=== PATIENT | female | born 1950 | race Caucasian/White ===

== ENCOUNTER 2016-06-27 13:52 | Inpatient (IN) | payer BC, OTHER ==
[~2016-06-27] VITALS: Ht 160 cm; Wt 68.6 kg
[~2016-06-27 13:52] MED LIST: BENICAR PO; BIOT1TAB2 PO; DICY10CA55 PO; FISHOIL PO; GLUC500C4 PO; MAGNESIUM PO; MEDR2.5T PO; MULT-190 PO; MULTTAB58 PO; PRM/625 PO; VALA500T60 PO; [UNRECOGNIZED DRUG - CODE] PO; [UNRECOGNIZED DRUG - MIXTURE] PO
[2016-06-27] MEDS ORDERED: LABETALOL HCL IV 5 MG/ML 20ML IV STA ×2 (14:12→16:52)
[2016-06-27] MEDS ORDERED: SODIUM CHLORIDE 0.9% 1000ML 1,000 ML IV SCH ×2 (14:12→18:30)
[2016-06-27] MEDS ORDERED: OLME1TAB21 PO (14:20)
[2016-06-27] MEDS ORDERED: OMEG10002 PO (14:21)
--- NOTE | 2016-06-27 14:30 | DIAGNOSTIC IMAGING REPORT ---
CT HEAD WITHOUT CONTRAST (CT) CLINICAL HISTORY: Stroke LOSS OF MEMORY, CONFUSION. COMPARISON STUDY: No previous studies for comparison. TECHNIQUE: Axial CT of the brain is performed from the vertex to the skull base. IV contrast was not administered for this examination. CT DOSE: 537.48 mGy.cm FINDINGS: No intra or extra-axial mass lesions are visualized. There is no CT evidence of acute cortical infarction. There is no evidence of midline shift. There is no acute hemorrhage. No calvarial fractures are visualized. There are minimal white matter hypodensities likely on a small vessel basis. There is no evidence of pathologic ventricular dilatation. There is mucosal thickening/fluid within the right maxillary sinus. IMPRESSION: No acute intracranial findings Electronically signed by: Héctor Hayden M.D. 06/27/2016 2:29 PM Dictated Date/Time: 06/27/2016 2:27 PM
[2016-06-27 14:34] LABS: BASO % 0.7 %; BASO ABS # 0.04 K/uL (0-0.2); COMPLETE YES; EOS % 3.4 %; HEMATOCRIT 40.3 % (37-47); IG% 0.7 %; LYMPH % 20.8 %; LYMPH ABS # 1.15 K/uL (1.2-3.4); MEAN CELL VOLUME 90.4 fL (80-100); MEAN CORPUSCULAR HEMOGLOBIN 32.5 pg (25-34); MEAN PLATELET VOLUME 9.2 fL (7.4-10.4); NEUT % 67.4 %; PLATELET COUNT 253 K/uL (130-400); RED BLOOD COUNT 4.46 M/uL (4.2-5.4); WHITE BLOOD COUNT 5.54 K/uL (4.8-10.8)
[2016-06-27 14:55] LABS: BLOOD UREA NITROGEN 14 mg/dl (7-18); BUN/CREATININE RATIO 14.6 (10-20); CALCIUM 10.2 mg/dl (8.5-10.1); CARBON DIOXIDE 22 mmol/L (21-32); CHLORIDE 93 mmol/L (98-107); CREATININE 0.97 mg/dl (0.60-1.20); GLUCOSE 104 mg/dl (70-99); POTASSIUM 3.6 mmol/L (3.5-5.1); SODIUM 129 mmol/L (136-145)
[2016-06-27 14:58] LABS: ISTAT CREATININE 0.8 mg/dl (0.6-1.3); ISTAT IONIZED CALCIUM 1.09 mmol/l (1.12-1.32)
[2016-06-27 15:00] LABS: CKMB/CK RATIO 1.8 (0-3.0)
[2016-06-27 15:17] LABS: BENZODIAZEPINE, URINE NEG (NEG); COCAINE,URINE NEG (NEG); PHENCYCLIDINE, URINE NEG (NEG)
[2016-06-27 15:21] LABS: THYROID STIMULATING HORMONE 2.76 uIu/ml (0.300-4.500)
[2016-06-27] MEDS ORDERED: BNC/20125 PO (15:39)
--- NOTE | 2016-06-27 15:41 | DIAGNOSTIC IMAGING REPORT ---
CHEST ONE VIEW PORTABLE CLINICAL HISTORY: Stroke COMPARISON STUDY: 07/02/2012 FINDINGS: The cardiac and mediastinal contours are normal. There is no evidence of focal pulmonary consolidation. There is no evidence of failure. No pleural effusions are visualized.[ IMPRESSION: No active disease in the chest. Electronically signed by: Héctor Hayden M.D. 06/27/2016 3:40 PM Dictated Date/Time: 06/27/2016 3:39 PM
[2016-06-27 15:57] LABS: URINE APPEARANCE CLOUDY (CLEAR); URINE BILIRUBIN NEG (NEG); URINE COLOR YELLOW; URINE EPITHELIAL CELL AUTO >30 /lpf (0-5); URINE NITRITE NEG (NEG); URINE SPECIFIC GRAVITY 1.018 (1.000-1.030); UROBILINOGEN NEG (NEG)
[2016-06-27 15:59] LABS: MANUAL MICROSCOPIC REQUIRED? NO; REVIEW REQ? NO
[2016-06-27] MEDS ORDERED: ACETAMINOPHEN 325 MG TAB PO STA (16:07)
--- NOTE | 2016-06-27 16:31 | EMERGENCY ROOM VISIT NOTE ---
History Report prepared by Giancarlo: Tracee Steward Under the Supervision of: Dr. James Martinez M.D. First contact with patient: 14:02 Chief Complaint: STROKE SYMPTOMS Stated Complaint: CONFUSION, LOSS OF MEMORY History of Present Illness The patient is a 65 year old female who presents to the Emergency Room with complaints of possible stroke symptoms. She is accompanied by her . The patient's reports they wore making hoagies at [employer] this morning. On the way home, they drove separately and her stopped at his mother-in- laws to help shovel snow. When he got home, the patient was "standing there in a daze". He reports she had no recollection of making hoagies or what she did this morning. The last time her saw her well was around 1130 this morning when she left [employer]. The patient does not remember anything about this morning, stating she does not recall driving herself home. Her thinks she may have shoveled their porch and sidewalk, as both were cleared when he arrived home, but he is not completely sure. He denies seeing any signs of trauma in their home, like she had fallen. The patient denies any vision changes , headache, chest pain, shortness of breath, or numbness or weakness on one side of her body. She denies any changes in speech or difficulty finding words and states she feels well here in the ED except for her memory. Her notes she has a history of hypertension, for which she takes daily medication, and uses hormone replacement. She has no history of diabetes or anticoagulant use. Source of History: patient, spouse/significant other () History Limited By: other (confusion) Onset: 11:30 AM last known well Position: other (global ) Quality: other (Memory loss) Timing: other (persistent) Associated Symptoms: No SOB, No chest pain, No headache, No numbness ( numbness on one side of body), No weakness (weakness on one side of body) Review of Systems See HPI for pertinent positives & negatives. A total of 10 systems reviewed and were otherwise negative. Past Medical & Surgical Medical Problems: (1) Hypertension Social History Smoking Status: Never Smoker Smokeless Tobacco Use: No Alcohol Use: occasionally Drug Use: none Marital Status: Housing Status: lives with family Occupation Status: retired Current/Historical Medications Scheduled Biotin (Biotin), 1 TABLET PO DAILY Estrogens, Conjugated (Premarin), 0.625 MG PO QM-F Gelatin (Bulk) (Gelatin), 650 MG PO DAILY Glucosamine Sulfate (Glucosamine), 2,000 MG PO DAILY Multiple Vitamin (Multivitamin), 1 TAB PO DAILY Ocuvite Preservision (Ocuvite Preservision), 1 TAB PO DAILY Olmesartan/Hctz (Benicar Hct 20/12.5), 1 TAB PO DAILY Prentiss-3 Fatty Acids (Fish Oil), 1,000 MG PO BID Allergies Coded Allergies: Sulfa Drugs (Verified Allergy, Mild, ICTH,SWELLING, 10/28/14) Physical Exam Vital Signs Date Time Temp Pulse Resp B/P Pulse Ox O2 Delivery O2 Flow Rate FiO2 06/27/16 16:13 76 16 166/104 100 Room Air 06/27/16 15:50 79 18 155/92 100 Room Air 06/27/16 15:10 74 18 168/91 99 Room Air 06/27/16 14:34 100 Room Air 06/27/16 13:56 36.4 76 20 206/109 100 Room Air Physical Exam Constitutional: Vital signs reviewed. Eyes: Pupils are equal round reactive to light. Conjunctiva are noninjected. ENT: Normocephalic atraumatic. No midline tenderness to the cervical spine. Pharynx is clear without erythema or exudate. Mucous membranes are moist. Neck supple without meningeal signs. Respiratory: Clear to auscultation bilaterally. Breath sounds are equal bilaterally. Cardiovascular: Regular rate and rhythm. No rubs or gallops. GI: Soft, nondistended and nontender. Bowel sounds are present. Musculoskeletal: No peripheral edema. Integumentary: No cyanosis. Neurological: The patient is awake and alert. She is oriented to person and place only. She is oriented to contact as well. Cranial nerves II-XII are intact. Motor is 5 out of 5 all extremities. Sensation is intact to light touch all extremities. Normal speech. No pronator drift. No limb ataxia. Psychiatric: The patient appears anxious and tearful. Medical Decision & Procedures ER Provider Diagnostic Interpretation: This CT scan was reviewed and interpreted by the radiologist and reviewed by myself. CT HEAD WITHOUT CONTRAST (CT) CLINICAL HISTORY: Stroke LOSS OF MEMORY, CONFUSION. COMPARISON STUDY: No previous studies for comparison. TECHNIQUE: Axial CT of the brain is performed from the vertex to the skull base. IV contrast was not administered for this examination. CT DOSE: 537.48 mGy.cm FINDINGS: No intra or extra-axial mass lesions are visualized. There is no CT evidence of acute cortical infarction. There is no evidence of midline shift. There is no acute hemorrhage. No calvarial fractures are visualized. There are minimal white matter hypodensities likely on a small vessel basis. There is no evidence of pathologic ventricular dilatation. There is mucosal thickening/fluid within the right maxillary sinus. IMPRESSION: No acute intracranial findings Electronically signed by: Héctor Hayden M.D. 06/27/2016 2:29 PM This X-Ray was reviewed and interpreted by myself and the radiologist. CHEST ONE VIEW PORTABLE CLINICAL HISTORY: Stroke COMPARISON STUDY: 07/02/2012 FINDINGS: The cardiac and mediastinal contours are normal. There is no evidence of focal pulmonary consolidation. There is no evidence of failure. No pleural effusions are visualized. IMPRESSION: No active disease in the chest. Electronically signed by: Héctor Hayden M.D. 06/27/2016 3:40 PM Laboratory Results 06/27/16 14:20 Red Blood Count 4.46, Mean Corpuscular Volume 90.4, Mean Corpuscular Hemoglobin 32.5, Mean Corpuscular Hemoglobin Concent 36.0, Mean Platelet Volume 9.2, Neutrophils (%) (Auto) 67.4, Lymphocytes (%) (Auto) 20.8, Monocytes (%) (Auto) 7.0, Eosinophils (%) (Auto) 3.4, Basophils (%) (Auto) 0.7, Neutrophils # (Auto) 3.73, Lymphocytes # (Auto) 1.15, Monocytes # (Auto) 0.39, Eosinophils # (Auto) 0.19, Basophils # (Auto) 0.04 06/27/16 14:20 Test 06/27/16 14:13 06/27/16 14:20 06/27/16 14:22 Bedside Prothrombin Time INR 0.9 (0.9-1.1) Bedside Glucose 120 mg/dl (70-90) White Blood Count 5.54 K/uL (4.8-10.8) Red Blood Count 4.46 M/uL (4.2-5.4) Hemoglobin 14.5 g/dL (12.0-16.0) Hematocrit 40.3 % (37-47) Mean Corpuscular Volume 90.4 fL (80-100) Mean Corpuscular Hemoglobin 32.5 pg (25-34) Mean Corpuscular Hemoglobin Concent 36.0 g/dl (32-36) Platelet Count 253 K/uL (130-400) Mean Platelet Volume 9.2 fL (7.4-10.4) Neutrophils (%) (Auto) 67.4 % Lymphocytes (%) (Auto) 20.8 % Monocytes (%) (Auto) 7.0 % Eosinophils (%) (Auto) 3.4 % Basophils (%) (Auto) 0.7 % Neutrophils # (Auto) 3.73 K/uL (1.4-6.5) Lymphocytes # (Auto) 1.15 K/uL (1.2-3.4) Monocytes # (Auto) 0.39 K/uL (0.11-0.59) Eosinophils # (Auto) 0.19 K/uL (0-0.5) Basophils # (Auto) 0.04 K/uL (0-0.2) RDW Standard Deviation 37.7 fL (36.4-46.3) RDW Coefficient of Variation 11.4 % (11.5-14.5) Immature Granulocyte % (Auto) 0.7 % Immature Granulocyte # (Auto) 0.04 K/uL (0.00-0.02) Urine Color YELLOW Urine Appearance CLOUDY (CLEAR) Urine pH 6.0 (4.5-7.5) Urine Specific [place] 1.018 (1.000-1.030) Urine Protein NEG (NEG) Urine Glucose (UA) NEG (NEG) Urine Ketones 1+ (NEG) Urine Occult Blood NEG (NEG) Urine Nitrite NEG (NEG) Urine Bilirubin NEG (NEG) Urine Urobilinogen NEG (NEG) Urine Leukocyte Esterase TRACE (NEG) Urine WBC (Auto) 1-5 /hpf (0-5) Urine RBC (Auto) 0-4 /hpf (0-4) Urine Hyaline Casts (Auto) 10-30 /lpf (0-5) Urine Epithelial Cells (Auto) >30 /lpf (0-5) Urine Bacteria (Auto) 2+ (NEG) Est Creatinine Clear Calc Drug Dose 52.4 ml/min Estimated GFR () 71.0 Estimated GFR (Non- 61.3 BUN/Creatinine Ratio 14.6 (10-20) Calcium Level 10.2 mg/dl (8.5-10.1) Total Creatine Kinase 71 U/L (26-192) Creatine Kinase MB 1.3 ng/ml (0.5-3.6) Creatine Kinase MB Ratio 1.8 (0-3.0) Troponin I < 0.015 ng/ml (0-0.045) Thyroid Stimulating Hormone (TSH) 2.760 uIu/ml (0.300-4.500) Free Thyroxine 1.35 ng/dl (0.80-1.60) Urine Opiates Screen NEG (NEG) Urine Methadone, Qualitative NEG (NEG) Urine Barbiturates NEG (NEG) Urine Phencyclidine (PCP) Level NEG (NEG) Ur Amphetamine/Methamphetamine NEG (NEG) MDMA (Ecstasy) Screen NEG (NEG) Urine Benzodiazepines Screen NEG (NEG) Urine Cocaine Metabolite NEG (NEG) Urine Marijuana (THC) NEG (NEG) Bedside Hemoglobin 15.0 g/dl (12.0-16.0) Bedside Hematocrit 44 % (37-47) Bedside Sodium 127 mEq/L (135-144) Bedside Potassium 5.0 mEq/L (3.3-5.0) Bedside Chloride 94 mEq/L (101-112) Bedside Total CO2 22 mEq/l (24-31) Anion Gap 17.0 mmol/L (16-25) Bedside Blood Urea Nitrogen 20 mg/dl (7-18) Bedside Creatinine 0.8 mg/dl (0.6-1.3) Bedside Glucose (other) 113 mg/dl (70-99) Bedside Ionized Calcium (Derick) 1.09 mmol/l (1.12-1.32) Laboratory results as reviewed by me. Medications Administered Medications (Trade) Dose Ordered Sig/Sudheer Route Start Time Stop Time Status Last Admin Dose Admin Labetalol HCl 10 mg 10 mg NOW STAT IV 06/27/16 14:12 06/27/16 14:14 DC 06/27/16 14:36 10 MG Sodium Chloride (Nss 1000ml) 1,000 ml @ 50 mls/hr Q20H IV 06/27/16 14:12 07/27/16 14:11 06/27/16 15:05 50 MLS/HR Acetaminophen (Tylenol Tab) 650 mg NOW STAT PO 06/27/16 16:07 06/27/16 16:08 DC 06/27/16 16:16 650 MG ECG Indication: weakness (possible stroke symptoms) Rate (beats per minute): 69 Rhythm: normal sinus (normal sinus rhythm) Findings: no acute ischemic change, no ectopy ED Course 1404: The patient was evaluated in room C10. A complete history and physical exam was performed. 1412: NSS 1000 ml @ 50 mls/hr IV, Labetalol HCl 10 mg IV. 1420: I discussed the risks and benefits associated with TPA with the patient's while she was in CT scan. 1425: Dr. Hayden, [facility] Radiology, informed me there is no acute pathology seen on the patient's CT scan. 1430: I discussed the patient's case with Dr. Mendoza, [facility] Neurology. The patient will be further evaluated. 1437: I reevaluated the patient. She is still being evaluated by Dr. Mendoza and her blood pressure is still significantly elevated at 223/96. 1443: I reevaluated the patient. Her blood pressure is 191/101. 1445: I discussed the patients case with Dr. Middleton. She does not feel the patient is a TPA candidate. Her symptoms could be hypertensive encephalopathy or due to the patient's Sodium levels. 1450: I reevaluated the patient. Her blood pressure is 176/91. I spoke to the patient and her about why we are not administering TPA and they are in agreement. 1455: I reevaluated the patient. She is having trouble forming new memories, and is unable to remember doing an exam that we just finished 5 minutes prior. I discussed my plan for her to remain in the hospital for further evaluation and management and her verbalized complete understanding and agreement. 1504: I reevaluated the patient. She was unable to recall a picture she had been shown twice during her visit here to the ED today. 1525: I discussed the patients case with NANCY Majano, [facility] Hospitalist. The patient will be further evaluated. Medical Decision This is a 65-year-old female who presents with memory loss. Differential diagnosis includes TIA, CVA, transient global amnesia, head trauma, intracranial hemorrhage, intracranial mass, metabolic derangement. I did perform a limited focused review of portions of the patient's old chart on the electronic medical record. The patient has had no recent pertinent visits to this hospital. I did evaluate the patient as noted above. She is presenting with memory loss. She vaguely remembers being in the [employer] but it feels like a dream to her. She is unable to tell us what day or year it is. She is unable to tell us who the president is but she is able to name where she is and who she is as well as her address. She otherwise has no focal neurologic deficits. I did call a stroke alert. Bedside blood sugar is 120. IV access was established. The patient was placed on a continuous registered nurse cardiac. She is severely hypertensive. She was given labetalol 10 mg IV. I did order a CT of the head. I did review the images myself as well as the radiology report as described above. There is no evidence of bleed or CVA. I did order and personally review the patient's 12-lead EKG and chest x-ray as described above. I did order and review the patient's blood work as noted in the electronic medical record. Her sodium is 129. The patient was evaluated via telemedicine by the [facility] neurologist. She did not feel the patient was a TPA candidate as the diagnosis for her symptoms is unclear and she is outside the three-hour window as well. Her deficit is only to recent memory as well. I do agree with the neurologist and explain this to the patient and her . The patient had improvement of her blood pressure. Her memory continued to be impaired here and she in fact had difficulty forming new memories. She was shown the same picture 3 times but could not remember it each subsequent time. She will be hospitalized for further evaluation. I did discuss case with the hospitalist and rn case manager. Consults Time Called: 1424 Consulting Physician: Dr. Mendoza, [facility] Neurology Returned Call: [phone] I discussed the patient's case with Dr. Mendoza, [facility] Neurology. The patient will be further evaluated. Additional Consults: Time Called: 1626 Consulted Physician: NANCY Majano [facility] Hospitalist Returned Call: [phone] Additional Comments: [facility] The patient will be further evaluated. Impression Primary Impression: Amnesia (retrograde) Additional Impressions: Hyponatremia Hypertensive emergency Anterograde amnesia Critical Care I have personally spent greater than 30 minutes of critical care time in the direct management of this patient. This includes bedside care, interpretation of diagnostic studies, and testing, discussion with consultants, patient, and family members, and other required patient management activities. This 30 minutes is in excess of all separately billable procedures. Scribe Attestation The scribe's documentation has been prepared under my direct and personally reviewed by me in its entirety. I confirm that the note above accurately reflects all work, treatment, procedures, and medical decision making performed by me. Departure Information Dispostion Being Evaluated By Hospitalist Referrals No Doctor, Assigned (PCP) Patient Instructions My [facility] Problem Qualifiers
[2016-06-27] MEDS ORDERED: NURSING VERBAL MED ORDER ONE (16:45)
[2016-06-27] MEDS ORDERED: LABETALOL HCL IV 5 MG/ML 20ML IV SCH (16:50)
[2016-06-27] MEDS ORDERED: ONDANSETRON INJ 2 MG/ML 2 ML VIAL IV PRN (17:00)
[2016-06-27] MEDS ORDERED: ACETAMINOPHEN 325 MG TAB PO PRN (17:00)
[2016-06-27] MEDS ORDERED: LOSARTAN POTASSIUM 25 MG TAB PO ONE (17:01)
[2016-06-27] MEDS ORDERED: ASPIRIN/ALUM/MAGNES/CAL CARB 325 MG TAB PO ONE (17:09)
--- NOTE | 2016-06-27 17:12 | History and Physical ---
History & Physical Date & Time of Service: Jun 27, 2016 at 16:41 Chief Complaint: Confusion, Loss Of Memory Primary Care Physician: Kenneth Brown D.O. History of Present Illness 65 yoF with h/o HTN presents via her to the ER for acute onset of confusion at home. The patient and her left their house today around 0900 to help with a chimney builder at [employer]. They participated in making hoagies and then left separately-the patient drove herself home. ther stopped on an errand and returned home around 1300 to find his standing in the foyer of their home confused and stating that she didn't know where she was and didn't remember the events of the day. He noted that someone had shoveled the snow off the sidewalk and assumes that was her. Her states she has has a "head cold" over the past few days and has been taking an unknown OTC medication. Today she tells me she has chronic post-nasal drip, but denies cough, fevers, chills, sore throat. She does have a headache with pressure in her sinuses, which is not TTP on exam. She denies visual changes, and states that there was no facial dropp, speech issues, speaking issues, or issues with ambulation with his at home today. She is drinking water without issue and denies issues with swallowing. The patient also denies any symptoms of UTI including no dysuria, urinary urgency or frequency recently. She has no chest pain or SOB and denies pain anywhere except some pressure in her sinuses. She cannot remember if she took her BP medication today. denies any recent vomiting or diarrhea at home. Upon arrival to the ER, the patient's BP was 223 systolic and she was given labetalol. During my exam she was alert and oriented to place and time, but then towards the end of the exam she couldn't remember what we had just talked about and kept asking over and over whether or not she had a stroke and if she was going to be admitted to the hospital. Her BP was back up to 220s systolic at this point again. Labetalol was ordered. She has no personal h/o stroke or heart disease and has never had anything like this before. Past Medical/Surgical History Medical Problems: (1) Hypertension Status: Chronic Surgical Problems: (1) H/O Spinal surgery Status: Resolved Family History Father with stroke in his 70s. Mother is healthy Social History Smoking Status: Former Smoker (10 oack year history) Smokeless Tobacco Use: No Alcohol Use: occasionally Drug Use: none Marital Status: Housing status: lives with significant other Occupational Status: retired (industrial technology teacher) Immunizations History of Influenza Vaccine: Yes Influenza Vaccine Date: Dec 18, 2015 History of Tetanus Vaccine?: Yes Tetanus Immunization Date: September 28, 2015 History of Pneumococcal: Yes Pneumococcal Date: September 28, 2015 History of Hepatitis B Vaccine: Unknown Multi-Drug Resistant Organisms History of MDRO: No Allergies Coded Allergies: Sulfa Antibiotics (Verified Allergy, Intermediate, Itch/Swelling, 06/27/16) Home Medications Scheduled Biotin (Biotin), 1 TABLET PO DAILY Estrogens, Conjugated (Premarin), 0.625 MG PO QM-F Gelatin (Bulk) (Gelatin), 650 MG PO DAILY Glucosamine Sulfate (Glucosamine), 2,000 MG PO DAILY Multiple Vitamin (Multivitamin), 1 TAB PO DAILY Ocuvite Preservision (Ocuvite Preservision), 1 TAB PO DAILY Olmesartan/Hctz (Benicar Hct 20/12.5), 1 TAB PO DAILY [place]-3 Fatty Acids (Fish Oil), 1,000 MG PO BID Review of Systems Constitutional: No chills, No fever, No weakness Eyes: No diplopia, No worsening of vision ENT: + nasal symptoms (sinus pressure and post-nasal drip), No hearing loss, No sore throat Respiratory: + cough, No shortness of breath Cardiovascular: No chest pain, No edema Abdomen: No GI bleeding, No constipation, No diarrhea, No nausea, No pain, No vomiting Musculoskeletal: No problem reported Genitourinary - Female: No dysuria, No hematuria, No urinary frequency, No urinary urgency Neurologic: + memory loss, No balance problems, No numbness/tingling, No paralysis, No vertigo, No weakness Psychiatric: + anxiety, + depression symptoms, No problem reported Hematologic / Lymphatic: No abnormal bleeding/bruising, No night sweats Integumentary: No new/changing skin lesions, No rash Physical Exam Vital Signs Date Time Temp Pulse Resp B/P Pulse Ox O2 Delivery O2 Flow Rate FiO2 06/27/16 16:13 76 16 166/104 100 Room Air 06/27/16 15:50 79 18 155/92 100 Room Air 06/27/16 15:10 74 18 168/91 99 Room Air 06/27/16 14:34 100 Room Air 06/27/16 13:56 36.4 76 20 206/109 100 Room Air GEN: WNWD, in no acute distress, alert and appropriate but with short term memory loss that is apparent. HEENT: NC/AT, PERRL, normal sclerae, EOMI, sinuses not tender to palpation, fundoscopic exam was normal bilaterally CARDIO: reg rate, S1/2 heard without m/g/r LUNGS: CTA bilaterally, no crackles, rales or wheezes, good diaphragmatic excursion ABD: soft, non-tender, non-distended, no rebound or guarding EXTREMITY: RP and DP palpable 2+ bilat, no LE swelling or edema, extremities are warm and well-perfused NEURO: CN 2-12 intact, sensation intact throughout, MELINDA-intact, Aivekz-wv-lglw intact, (reflexes) knee 2+ bilat. Mental status-she is alert and oriented to person, place and date but has some short term memory loss and cannot remember events from this morning. She cannot remember how she got here. Long-term memory appears intact as she remembers that she has two sons and they were born here and the years they were born, she knows her , and she knows she is a retired industrial technology teacher. She continues to ask me things that she and I just discussed, however. It appears she cannot hold onto any new information. MUSC: 5/5 strength throughout, no focal deficits SKIN: warm and dry Diagnostics Laboratory Results Results Past 24 Hours Test 06/27/16 14:13 06/27/16 14:20 06/27/16 14:22 Range/Units Bedside Prothrombin Time INR 0.9 0.9-1.1 Bedside Glucose 120 70-90 mg/dl White Blood Count 5.54 4.8-10.8 K/uL Red Blood Count 4.46 4.2-5.4 M/uL Hemoglobin 14.5 12.0-16.0 g/dL Hematocrit 40.3 37-47 % Mean Corpuscular Volume 90.4 80-100 fL Mean Corpuscular Hemoglobin 32.5 25-34 pg Mean Corpuscular Hemoglobin Concent 36.0 32-36 g/dl Platelet Count 253 130-400 K/uL Mean Platelet Volume 9.2 7.4-10.4 fL Neutrophils (%) (Auto) 67.4 % Lymphocytes (%) (Auto) 20.8 % Monocytes (%) (Auto) 7.0 % Eosinophils (%) (Auto) 3.4 % Basophils (%) (Auto) 0.7 % Neutrophils # (Auto) 3.73 1.4-6.5 K/uL Lymphocytes # (Auto) 1.15 1.2-3.4 K/uL Monocytes # (Auto) 0.39 0.11-0.59 K/uL Eosinophils # (Auto) 0.19 0-0.5 K/uL Basophils # (Auto) 0.04 0-0.2 K/uL RDW Standard Deviation 37.7 36.4-46.3 fL RDW Coefficient of Variation 11.4 11.5-14.5 % Immature Granulocyte % (Auto) 0.7 % Immature Granulocyte # (Auto) 0.04 0.00-0.02 K/uL Urine Color YELLOW Urine Appearance CLOUDY CLEAR Urine pH 6.0 4.5-7.5 Urine Specific [place] 1.018 1.000-1.030 Urine Protein NEG NEG Urine Glucose (UA) NEG NEG Urine Ketones 1+ NEG Urine Occult Blood NEG NEG Urine Nitrite NEG NEG Urine Bilirubin NEG NEG Urine Urobilinogen NEG NEG Urine Leukocyte Esterase TRACE NEG Urine WBC (Auto) 1-5 0-5 /hpf Urine RBC (Auto) 0-4 0-4 /hpf Urine Hyaline Casts (Auto) 10-30 0-5 /lpf Urine Epithelial Cells (Auto) >30 0-5 /lpf Urine Bacteria (Auto) 2+ NEG Sodium Level 129 136-145 mmol/L Potassium Level 3.6 3.5-5.1 mmol/L Chloride Level 93 98-107 mmol/L Carbon Dioxide Level 22 21-32 mmol/L Anion Gap 14.0 17.0 16-25 mmol/L Blood Urea Nitrogen 14 7-18 mg/dl Creatinine 0.97 0.60-1.20 mg/dl Est Creatinine Clear Calc Drug Dose 52.4 ml/min Estimated GFR () 71.0 Estimated GFR (Non- 61.3 BUN/Creatinine Ratio 14.6 10-20 Random Glucose 104 70-99 mg/dl Calcium Level 10.2 8.5-10.1 mg/dl Total Creatine Kinase 71 26-192 U/L Creatine Kinase MB 1.3 0.5-3.6 ng/ml Creatine Kinase MB Ratio 1.8 0-3.0 Troponin I < 0.015 0-0.045 ng/ml Thyroid Stimulating Hormone (TSH) 2.760 0.300-4.500 uIu/ml Free Thyroxine 1.35 0.80-1.60 ng/dl Urine Opiates Screen NEG NEG Urine Methadone, Qualitative NEG NEG Urine Barbiturates NEG NEG Urine Phencyclidine (PCP) Level NEG NEG Ur Amphetamine/Methamphetamine NEG NEG MDMA (Ecstasy) Screen NEG NEG Urine Benzodiazepines Screen NEG NEG Urine Cocaine Metabolite NEG NEG Urine Marijuana (THC) NEG NEG Bedside Hemoglobin 15.0 12.0-16.0 g/dl Bedside Hematocrit 44 37-47 % Bedside Sodium 127 135-144 mEq/L Bedside Potassium 5.0 3.3-5.0 mEq/L Bedside Chloride 94 101-112 mEq/L Bedside Total CO2 22 24-31 mEq/l Bedside Blood Urea Nitrogen 20 7-18 mg/dl Bedside Creatinine 0.8 0.6-1.3 mg/dl Bedside Glucose (other) 113 70-99 mg/dl Bedside Ionized Calcium ([place]) 1.09 1.12-1.32 mmol/l Diagnostic Radiology CHEST ONE VIEW PORTABLE FINDINGS: The cardiac and mediastinal contours are normal. There is no evidence of focal pulmonary consolidation. There is no evidence of failure. No pleural effusions are visualized.[ IMPRESSION: No active disease in the chest. -------- CT HEAD WITHOUT CONTRAST (CT) No intra or extra-axial mass lesions are visualized. There is no CT evidence of acute cortical infarction. There is no evidence of midline shift. There is no acute hemorrhage. No calvarial fractures are visualized. There are minimal white matter hypodensities likely on a small vessel basis. There is no evidence of pathologic ventricular dilatation. There is mucosal thickening/fluid within the right maxillary sinus. IMPRESSION: No acute intracranial findings EKG SR 69, no ST changes. Impression Assessment and Plan 65 yo F with acute onset memory loss 1. Memory loss-acute onset, no seizure history with RF for stoke to include age and HTN. Stroke alert was called in ED and pt was deemed not a candidate for TPA. Head CT was negative. Pt has issues with small spaces and metal in her back s/p spine surgery. Will consult Neurology and defer MRI need to them. Will start aspirin. Will admit to telemetry with efforts to control her BP. Labetalol given again in ER prior to arrival on floor. DDX includes but is not limited to stroke, hyponatremia, uncontrolled hypertension, adverse reaction to the cold medication taken over the past few days, ACS. Doubt encephalitis without fever or meningeal signs/symptoms. EKG reveals no ischemia, pt denies chest pain or trouble breathing and cardiac enzymes are negative, so ACS less likely. Recent cold symptoms so will screen for flu. Utox is negative and patient does not appear to have an active infection in her lungs or urine. She has a nonfocal exam but becomes intermittently confused with short-term memory loss. Will work to correct lytes and BP now and monitor closely. 2. Hypertensive urgency-labetalol given in ER twice. Will give patient her oral home med and cont to monitor. Will order hydralazine PRN to keep BP<180. Reassessment of BP later in the night was in 140s systolic. 3. Hyponatremia-IVF given in ER, but patient has a dry mouth and dehydration on labwork. Will cont IVF and recheck Na tonight. Ordered urine sodium and creatinine as well as plasma osm, but this appears to be hypovolemic hypotonic hyponatremia. Repeat Na on IVF was 130 up from 127. Trend PRP q4h overnight. DVT proph: Lovenox FULL CODE Dispo-monitor on telemetry, pending neuro assessment and mental status improvement. Maritza Guajardo DO [facility] Level of Care Telemetry Resuscitation Status FULL RESUSCITATION VTE Prophylaxis VTE Risk Assessment Done? Y/N: Yes Risk Level: Moderate Given or contraindicated: Enoxaparin (Lovenox)SQ
[2016-06-27] MEDS ORDERED: ALPRAZOLAM 0.5 MG TAB PO PRN (17:15)
[2016-06-27] MEDS ORDERED: HydrALAZINE HCL 20 MG/ML VIAL IV. PRN (17:15)
[2016-06-27 19:15] VITALS: BP 171/84; PULSE 69; TEMP 36.7; O2SAT 100; Ht 160 cm; Wt 68.6 kg
[2016-06-27 20:50] VITALS: BP 148/81; PULSE 77
[2016-06-27] MEDS: ENOXAPARIN 40 MG/0.4 ML SYR SC SCH (21:05)
[2016-06-27 21:08] LABS: CALCIUM 8.9 mg/dl (8.5-10.1); CREATININE 0.97 mg/dl (0.60-1.20); POTASSIUM 3.6 mmol/L (3.5-5.1)
[2016-06-27 22:32] LABS: INFLUENZA A PCR Neg for Influ A (NEG); INFLUENZA B PCR Neg for Influ B (NEG)
[2016-06-27 23:47] VITALS: BP 148/77; PULSE 73; TEMP 36.6; O2SAT 98
[2016-06-28] VITALS (7 sets, daily range): BP systolic 129–152; BP diastolic 78–85; PULSE 66–74; TEMP 36.6–37; O2SAT 96–100
[2016-06-28 00:14] LABS: BUN/CREATININE RATIO 13.9 (10-20); CALCIUM 8.7 mg/dl (8.5-10.1); CREATININE 0.98 mg/dl (0.60-1.20); POTASSIUM 3.6 mmol/L (3.5-5.1)
[2016-06-28 04:10] LABS: MEAN CELL VOLUME 91.6 fL (80-100); MEAN CORPUSCULAR HEMOGLOBIN 32.5 pg (25-34); MEAN CORPUSCULAR HGB CONC 35.4 g/dl (32-36); MEAN PLATELET VOLUME 8.8 fL (7.4-10.4); PLATELET COUNT 193 K/uL (130-400); RED BLOOD COUNT 3.82 M/uL (4.2-5.4)
[2016-06-28 04:31] LABS: BUN/CREATININE RATIO 16.2 (10-20); CALCIUM 8.5 mg/dl (8.5-10.1); CREATININE 0.76 mg/dl (0.60-1.20); POTASSIUM 3.7 mmol/L (3.5-5.1)
[2016-06-28] MEDS: ASPIRIN/ALUM/MAGNES/CAL CARB 325 MG TAB PO SCH (07:48)
[2016-06-28] MEDS: LOSARTAN POTASSIUM 25 MG TAB PO SCH (07:48)
[2016-06-28 09:13] LABS: BUN/CREATININE RATIO 12.7 (10-20); CALCIUM 8.6 mg/dl (8.5-10.1); CREATININE 0.77 mg/dl (0.60-1.20); POTASSIUM 3.8 mmol/L (3.5-5.1)
--- NOTE | 2016-06-28 09:42 | Clinical Documentation Query ---
[facility] CL[facility]ICAL [facility] QUERY Patient is a 65 year old female presenting with confusion and anterograde amnesia. Notably on admission, patient was both hyponatremic and hypertensive. She has been treated with IVF, serial serum and urine studies, IV antihypertensives. Nursing notes document improvement of mental status through the night with correction of serum sodium and improvement of blood pressure. As clinically appropriate, consider clarification as suggested below as this directly impacts DRG assignment and therefore measures of severity of illness and risk of mortality. Thank you. In your clinical opinion is this patient being managed for: (+ ) (Possible/Suspected/Likely) Metabolic and/or hypertensive encephalopathy ( ) Other explanation of clinical findings (Please Explain) ( ) Unable to determine (Please Define) ( ) Need to Discuss ( ) Not Agree The medical record reflects the following clinical findings, treatment, and risk factors. Clinical Indicators: As above Treatment:She has been treated with IVF, serial serum and urine studies, IV antihypertensives Risk Factors: Hyponatremia, hypertensive urgency Please clarify and document your clinical opinion in the progress notes and discharge summary. Terms such as "probable", "suspected", "likely", "questionable", "possible", or "still to be ruled out" are acceptable. IF IN AGREEMENT, YOU MUST DOCUMENT ABOVE DIAGNOSTIC STATEMENT IN DAILY PROGRESS NOTES AND DISCHARGE SUMMARY. This document is not part of the patient's record. Thank You, David Mckay, RN [phone]
--- NOTE | 2016-06-28 10:13 | Progress Note ---
Internal Med Progress Note Date of Service: Jun 28, 2016. Provider Documentation: SUBJECTIVE: The patient was seen and examined No more episodes of Amnesia OBJECTIVE: Vital Signs-as noted below Exam: General-No distress at rest Eyes-normal ENT-normal Neck-supple Lungs-Clear to ausucltate bilaterally Heart-Regular,no murmur appreciated Abdomen-Benign,no masses,bowel sound present Extremities-No edema Dlyrv-[id number]-mg focal neuro deficit Lab data as noted below. ASSESSMENT & PLAN: Transient Global Amnesia/Metabolic Encephalopathy Secondary to Hypertensive Urgency Doubt any TIA,Stroke or Seizure activity No more amnesia and no neurological symptoms Neurology consulted Negative CT of the head and awaiting other neuro work up Hypertensive urgency -labetalol given in ER twice. -Continue Home medications -BP seems to be controlled Hyponatremia-Doubt causing the current symptoms VF given in ER, Likely secondary to BP medication -HCTZ Will need to change or give Pot Supplement Sodium is improved DVT proph: Lovenox FULL CODE DISPOSITION Likely to go home end of the day today or tomorrow Vital Signs: Date Time Temp Pulse Resp B/P Pulse Ox O2 Delivery O2 Flow Rate FiO2 06/29/16 08:00 Room Air 06/29/16 07:19 36.7 72 18 145/89 99 Room Air 06/29/16 04:59 Room Air 06/29/16 04:40 37.1 77 18 124/73 98 Room Air 06/29/16 00:08 Room Air 06/28/16 23:49 37.0 71 18 129/84 100 Room Air 06/28/16 19:25 Room Air 06/28/16 15:25 Room Air 06/28/16 15:10 36.6 74 20 148/85 98 Room Air 06/28/16 12:00 Room Air 06/28/16 11:40 36.7 74 20 152/81 98 Room Air Lab Results: Results Past 24 Hours Test 06/29/16 05:43 Range/Units White Blood Count 4.18 4.8-10.8 K/uL Red Blood Count 3.89 4.2-5.4 M/uL Hemoglobin 12.4 12.0-16.0 g/dL Hematocrit 36.2 37-47 % Mean Corpuscular Volume 93.1 80-100 fL Mean Corpuscular Hemoglobin 31.9 25-34 pg Mean Corpuscular Hemoglobin Concent 34.3 32-36 g/dl RDW Standard Deviation 39.8 36.4-46.3 fL RDW Coefficient of Variation 11.7 11.5-14.5 % Platelet Count 210 130-400 K/uL Mean Platelet Volume 9.1 7.4-10.4 fL Sodium Level 136 136-145 mmol/L Potassium Level 4.0 3.5-5.1 mmol/L Chloride Level 103 98-107 mmol/L Carbon Dioxide Level 24 21-32 mmol/L Anion Gap 9.0 3-11 mmol/L Blood Urea Nitrogen 9 7-18 mg/dl Creatinine 0.67 0.60-1.20 mg/dl Est Creatinine Clear Calc Drug Dose 77.8 ml/min Estimated GFR () 106.9 Estimated GFR (Non- 92.2 BUN/Creatinine Ratio 13.4 10-20 Random Glucose 86 70-99 mg/dl Calcium Level 8.7 8.5-10.1 mg/dl
--- NOTE | 2016-06-28 11:56 | Neurology Consultation ---
Neurology Consultation Date of Consultation: Jun 28, 2016. Attending Physician: Joe Hood M.D. Primary Care Physician: Kenneth Brown D.O. Reason for Consultation: encephalopathy History of Present Illness Source: patient, spouse Alma Delia is a 65 year old female with a PMH HTN and on hormone replacement since age 45 for what she states has been memory issues. Alma Delia and her left their house around 0900 to help with a art supervisor at [employer]. They participated in making hoImpulsonices. They left in separate cars and her states she was in the foyer of their home confused and stating that she didn't know where she was and didn't remember the events of the day. The side walk had been shoveled but she didn't remember doing it. She states she recently had a "head cold" and has been using OTC. There is no headache associated with this event but she does still have some of her usual sinus pressure. Her states there was not slurred speech, facial droop, one sided weakness, vision changes or swallowing issues. she was not sure if she took her medications yesterday before the event but she does remember that she just wasn't feeling like herself. Her BP was 223 systolic in the ER and she was given labetalol. She states she has never had anything like this happen before. she does not have an personal history of stroke but her father had a stroke at age 77. Her mother is still living independently at age 94. She is an only child. She does not smoke but former smoker but does drink 2 beers every night with dinner. No street drugs. She does not have a history of migraines only surgery was lumber surgery. denies CP, SOB, abdominal pain, weakness, numbness tingling, vision changes, headache, N, V. Social History Smoking Status: Former smoker Smokeless Tobacco Use: No Alcohol Use: occasionally Drug Use: none Marital Status: Housing Status: lives with family Occupation Status: retired (first aid instructor) Allergies Coded Allergies: Sulfa Antibiotics (Verified Allergy, Intermediate, Itch/Swelling, 06/27/16) Current Inpatient Medications Current Inpatient Medications Medications (Trade) Dose Ordered Sig/Sudheer Route Start Time Stop Time Status Last Admin Dose Admin Enoxaparin Sodium (Lovenox Inj) 40 mg Q24H SC 06/27/16 21:00 07/27/16 20:59 06/27/16 21:05 40 MG Acetaminophen (Tylenol Tab) 650 mg Q4H PRN PO 06/27/16 17:00 07/27/16 16:59 Ondansetron HCl (Zofran Inj) 4 mg Q6H PRN IV 06/27/16 17:00 07/27/16 16:59 Losartan Potassium (coZAAR TAB) 25 mg DAILY PO 06/28/16 09:00 07/28/16 08:59 06/28/16 07:48 25 MG Hydralazine HCl (HydrALAZINE INJ) 10 mg Q6H PRN IV. 06/27/16 17:15 07/27/16 17:14 Aspirin/Aluminum/ Magnesium/Ca Carb (Ascriptin Tab) 325 mg DAILY PO 06/28/16 09:00 07/28/16 08:59 06/28/16 07:48 325 MG Alprazolam (Xanax Tab) 0.5 mg Q6H PRN PO 06/27/16 17:15 07/27/16 17:14 Physical Exam Vital Signs (Past 24 Hrs): Date Time Temp Pulse Resp B/P Pulse Ox O2 Delivery O2 Flow Rate FiO2 06/28/16 08:00 Room Air 06/28/16 07:41 36.6 73 20 147/78 99 Room Air 06/28/16 04:00 96 Room Air 06/28/16 03:51 36.6 66 18 135/83 96 Room Air 06/28/16 00:00 98 Room Air 06/27/16 23:47 36.6 73 18 148/77 98 Room Air 06/27/16 20:50 77 148/81 06/27/16 19:15 36.7 69 171/84 100 Room Air 06/27/16 18:10 74 16 183/93 98 06/27/16 17:17 70 16 149/103 98 Room Air 06/27/16 16:50 71 16 164/101 99 Room Air 06/27/16 16:13 76 16 166/104 100 Room Air 06/27/16 15:50 79 18 155/92 100 Room Air 06/27/16 15:10 74 18 168/91 99 Room Air 06/27/16 14:34 100 Room Air 06/27/16 13:56 36.4 76 20 206/109 100 Room Air Physical Exam: Constitutional: appearance nourished, healthy and normal Ears, Nose, Mouth and Throat: mucous membranes moist, no injection and skin normal, eyes normal Cardiovascular: normal S-1 and S-2 and regular rate and rhythm Respiratory: clear to auscultation (CTA) and no rales, rhonchi or wheeze Musculoskeletal: no peripheral edema and good distal pulses Skin: no stigmata of neurocutaneous disease noted and normal and intact Eyes: extraocular muscles intact (EOMI) and pupils equal, round and reactive to light (PERRL), disc flat good vascular pulsations NEUROLOGIC EXAMINATION: Mental status: Alert and interactive Oriented to full date and location Oriented to person Speech fluent with no evidence of aphasia Cranial Nerves smile eye brow raise symmetric, tongue midline Reflexes: Deep tendon reflexes were symmetrical and graded 2/5 brisk Plantar responses were flexor. Sensory: no sensory deficit to cool or vibration Coordination: Romberg absent Gait/Stance: Posture normal. Gait normal: with steady with steps, base, turning, and tandem gait. Motor: Negative for pronator drift of out stretched arms with eyes closed. Strength: biceps triceps hand wire frame dipper intrinsics 5/5 bilaterally hip flex ext plantar flex ext 5/5 bilaterally Laboratory Results Past 24 Hours: 06/28/16 04:04 06/28/16 08:17 Test 06/27/16 14:13 06/27/16 14:20 06/27/16 14:22 06/27/16 17:40 Bedside Prothrombin Time INR 0.9 (0.9-1.1) Bedside Glucose 120 mg/dl (70-90) Immature Granulocyte % (Auto) 0.7 % White Blood Count 5.54 K/uL (4.8-10.8) Red Blood Count 4.46 M/uL (4.2-5.4) Hemoglobin 14.5 g/dL (12.0-16.0) Hematocrit 40.3 % (37-47) Mean Corpuscular Volume 90.4 fL (80-100) Mean Corpuscular Hemoglobin 32.5 pg (25-34) Mean Corpuscular Hemoglobin Concent 36.0 g/dl (32-36) Platelet Count 253 K/uL (130-400) Mean Platelet Volume 9.2 fL (7.4-10.4) Neutrophils (%) (Auto) 67.4 % Lymphocytes (%) (Auto) 20.8 % Monocytes (%) (Auto) 7.0 % Eosinophils (%) (Auto) 3.4 % Basophils (%) (Auto) 0.7 % Neutrophils # (Auto) 3.73 K/uL (1.4-6.5) Lymphocytes # (Auto) 1.15 K/uL (1.2-3.4) Monocytes # (Auto) 0.39 K/uL (0.11-0.59) Eosinophils # (Auto) 0.19 K/uL (0-0.5) Basophils # (Auto) 0.04 K/uL (0-0.2) Immature Granulocyte # (Auto) 0.04 K/uL (0.00-0.02) Urine Color YELLOW Urine Appearance CLOUDY (CLEAR) Urine pH 6.0 (4.5-7.5) Urine Specific Dumas 1.018 (1.000-1.030) Urine Protein NEG (NEG) Urine Glucose (UA) NEG (NEG) Urine Ketones 1+ (NEG) Urine Occult Blood NEG (NEG) Urine Nitrite NEG (NEG) Urine Bilirubin NEG (NEG) Urine Urobilinogen NEG (NEG) Urine Leukocyte Esterase TRACE (NEG) Urine WBC (Auto) 1-5 /hpf (0-5) Urine RBC (Auto) 0-4 /hpf (0-4) Urine Hyaline Casts (Auto) 10-30 /lpf (0-5) Urine Epithelial Cells (Auto) >30 /lpf (0-5) Urine Bacteria (Auto) 2+ (NEG) Total Creatine Kinase 71 U/L (26-192) Creatine Kinase MB 1.3 ng/ml (0.5-3.6) Creatine Kinase MB Ratio 1.8 (0-3.0) Troponin I < 0.015 ng/ml (0-0.045) Thyroid Stimulating Hormone (TSH) 2.760 uIu/ml (0.300-4.500) Free Thyroxine 1.35 ng/dl (0.80-1.60) Urine Opiates Screen NEG (NEG) Urine Methadone, Qualitative NEG (NEG) Urine Barbiturates NEG (NEG) Urine Phencyclidine (PCP) Level NEG (NEG) Ur Amphetamine/Methamphetamine NEG (NEG) MDMA (Ecstasy) Screen NEG (NEG) Urine Benzodiazepines Screen NEG (NEG) Urine Cocaine Metabolite NEG (NEG) Urine Marijuana (THC) NEG (NEG) Bedside Hemoglobin 15.0 g/dl (12.0-16.0) Bedside Hematocrit 44 % (37-47) Bedside Sodium 127 mEq/L (135-144) Bedside Potassium 5.0 mEq/L (3.3-5.0) Bedside Chloride 94 mEq/L (101-112) Bedside Total CO2 22 mEq/l (24-31) Bedside Blood Urea Nitrogen 20 mg/dl (7-18) Bedside Creatinine 0.8 mg/dl (0.6-1.3) Bedside Glucose (other) 113 mg/dl (70-99) Bedside Ionized Calcium (Derick) 1.09 mmol/l (1.12-1.32) Osmolality 271 mOsm/kg (280-300) Test 06/27/16 20:32 06/27/16 20:51 06/28/16 04:04 06/28/16 08:17 Total Bilirubin 0.4 mg/dl (0.2-1) Direct Bilirubin 0.1 mg/dl (0-0.2) Aspartate Amino Transf (AST/SGOT) 12 U/L (15-37) Alanine Aminotransferase (ALT/SGPT) 14 U/L (12-78) Alkaline Phosphatase 56 U/L (45-117) Total Protein 7.1 gm/dl (6.4-8.2) Albumin 3.8 gm/dl (3.4-5.0) Urine Random Creatinine 130.0 mg/dl Urine Random Sodium 58 mEq/L Influenza Type A (RT-PCR) Neg for Influ A (NEG) Influenza Type B (RT-PCR) Neg for Influ B (NEG) Red Blood Count 3.82 M/uL (4.2-5.4) Mean Corpuscular Volume 91.6 fL (80-100) Mean Corpuscular Hemoglobin 32.5 pg (25-34) Mean Corpuscular Hemoglobin Concent 35.4 g/dl (32-36) RDW Standard Deviation 39.3 fL (36.4-46.3) RDW Coefficient of Variation 11.6 % (11.5-14.5) Mean Platelet Volume 8.8 fL (7.4-10.4) Anion Gap 10.0 mmol/L (3-11) Est Creatinine Clear Calc Drug Dose 67.6 ml/min Estimated GFR () 93.9 Estimated GFR (Non- 81.0 BUN/Creatinine Ratio 12.7 (10-20) Calcium Level 8.6 mg/dl (8.5-10.1) Imaging CT head no acute findings CXR no acute findings Impression 65 year old with loss of time with no clinical deficit Plan 1. CT head with no acute changes 2. EEG done and pending read 3. MRI with and without contrast patient is claustrophobic and may need ativan for procedure 4. TTE ordered and pending 5. labs WNL sodium slightly low on presentation and corrected 6. blood pressure still slightly high last labetalol given yesterday on home meds 7. once imaging completed further recommendations to follow I have seen and discussed above patient with Dr Nelly Childress, neurology Pt seen and examined, hx, images reviewed. Exam nml, suspect Transient Global Amnesia. Rec EEG, MRI, stroke sommers, asa. Pt will likely need to dc estrogen supplement RAJ Childress MD
[2016-06-28] MEDS ORDERED: LORAZEPAM 2 MG/ML 1 ML VIAL IV PRN (12:15)
[2016-06-28] MEDS ORDERED: LORAZEPAM INJ 1 MG in SYRINGE 0.5 ML IV PRN (12:45)
[2016-06-28] MEDS ORDERED: LORAZEPAM 2 MG/ML 1 ML VIAL IV SCH (12:45)
--- NOTE | 2016-06-28 20:40 | DIAGNOSTIC IMAGING REPORT ---
CAROTID ARTERY ULTRASOUND CLINICAL HISTORY: Encephalopathy. Transient ischemic attack versus seizure. COMPARISON STUDY: None. TECHNIQUE: Real-time, grayscale, and color Doppler sonography of the carotid and vertebral arteries was performed. Images were viewed in the transverse and longitudinal planes. FINDINGS: There is mild atherosclerotic plaque. Velocity measurements are listed below. COMMON CAROTID PEAK SYSTOLIC VELOCITY (CM/S): RIGHT 74 LEFT 80 ICA PEAK SYSTOLIC VELOCITY (CM/S): RIGHT 141 LEFT 102 The bilateral internal carotid arteries were tortuous which makes evaluation difficult. The systolic ratio between the right internal to common carotid artery is at the upper limits of normal, measuring 1.9. Antegrade flow is seen in the vertebral arteries. The external carotid arteries are patent. Blood pressures were not obtained in this patient. IMPRESSION: Mildly elevated velocity within the proximal to mid right internal carotid artery. However, the grayscale images do not demonstrate significant plaque/stenosis. This elevated velocity is probably artifactual and related to vessel tortuosity. No convincing evidence for hemodynamically significant stenosis. An MRA or CTA of the neck could be obtained as indicated. Electronically signed by: Cj Mcneal M.D. 06/28/2016 8:38 PM Dictated Date/Time: 06/28/2016 8:34 PM
[2016-06-28] MEDS: ENOXAPARIN 40 MG/0.4 ML SYR SC SCH (20:42)
[2016-06-29 04:40] VITALS: BP 124/73; PULSE 77; TEMP 37.1; O2SAT 98
[2016-06-29 06:18] LABS: HEMATOCRIT 36.2 % (37-47); MEAN CELL VOLUME 93.1 fL (80-100); MEAN CORPUSCULAR HEMOGLOBIN 31.9 pg (25-34); MEAN CORPUSCULAR HGB CONC 34.3 g/dl (32-36); MEAN PLATELET VOLUME 9.1 fL (7.4-10.4); PLATELET COUNT 210 K/uL (130-400); RED BLOOD COUNT 3.89 M/uL (4.2-5.4); WHITE BLOOD COUNT 4.18 K/uL (4.8-10.8)
[2016-06-29 06:46] LABS: BUN/CREATININE RATIO 13.4 (10-20); CALCIUM 8.7 mg/dl (8.5-10.1); CREATININE 0.67 mg/dl (0.60-1.20)
[2016-06-29 07:19] VITALS: BP 145/89; PULSE 72; TEMP 36.7; O2SAT 99
[2016-06-29] MEDS: ASPIRIN/ALUM/MAGNES/CAL CARB 325 MG TAB PO SCH (08:02)
[2016-06-29] MEDS: LOSARTAN POTASSIUM 25 MG TAB PO SCH (08:02)
--- NOTE | 2016-06-29 08:40 | ECHOCARDIOGRAM REPORT ---
*NOTICE TO RECEIVING REPUBLICAN AGENCY This information is strictly Confidential and protected under [place] law. [place] law prohibits you from making any further disclosure of this information unless further disclosure is expressly permitted by the written consent of the person to whom it pertains or is authorized by law. A general authorization for the release of medical or other information is not sufficient for this purpose. Hospital accepts no responsibility if the information is made available to any other person, INCLUDING THE PATIENT. Interpretation Summary * Name: TERRA GARCIA Study Date: 06/28/2016 04:03 PM BP: 152/81 mmHg * Patient Location: C.2T\S\S232\S\1 HR: 74 * : 1950 (M/d/yyyy) Gender: Female Height: 62 in * Age: 65 yrs Ethnicity: CA Weight: 150 lb * Ordering Physician: Nelly Childress * Performed By: Yesenia Kiser RDCS * * Reason For Study: TIA vs. seizure * BSA: 1.7 m2 * -- Conclusions -- * The atrial septum is aneurysmal. * The interatrial septum is intact with no evidence for an atrial septal defect. * Injection of contrast documented no interatrial shunt. * The left atrial size is normal. * Right atrial size is normal. * Left ventricular systolic function is normal. * Ejection Fraction = 60-65%. * The right ventricular systolic function is normal. * No significant valvular pathology. Procedure Details * A complete two-dimensional transthoracic echocardiogram was performed (2D, M-mode, Doppler and color flow Doppler). * A saline contrast injection was performed to assess for cardiac shunting. * The injection was performed through an intravenous line in the left arm. * The attending nurse who injected the saline contrast was Godfrey Redding RN. * A total of 20 cc of agitated saline was given. Left Ventricle * The left ventricle is normal in size. * There is normal left ventricular wall thickness. * Ejection Fraction = 60-65%. * Left ventricular systolic function is normal. * The left ventricular wall motion is normal. Right Ventricle * The right ventricle is normal size. * The right ventricular systolic function is normal. Atria * The left atrial size is normal. * Right atrial size is normal. * The atrial septum is aneurysmal. * Injection of contrast documented no interatrial shunt. * The interatrial septum is intact with no evidence for an atrial septal defect. Mitral Valve * The mitral valve leaflets appear thickened, but open well. * Significant mitral regurgitation is absent. Tricuspid Valve * Tricuspid leaflets are thickened. * Significant tricuspid regurgitation is absent. Aortic Valve * The aortic valve is tricuspid. The leaflet thickness if normal. There is no aortic stenosis, and no significant insufficiency. * The aortic valve opens well. * There is no significant aortic regurgitation. Pulmonic Valve * The pulmonic valve is not well visualized. Great Vessels * The aortic root and proximal ascending aorta are normal sized. Pericardium/Pleural * There is no pericardial effusion. MMode 2D Measurements and Calculations IVSd 0.79 cm LVIDd 4.6 cm LVIDs 3.1 cm LVPWd 0.64 cm IVS/LVPW 1.2 FS 32.9 % EDV(Teich) 97.5 ml ESV(Teich) 37.6 ml EF(Teich) 61.5 % EDV(cubed) 97.6 ml ESV(cubed) 29.4 ml EF(cubed) 69.8 % LV mass(C)d 102.1 grams LV mass(C)dI 60.3 grams/m\S\2 CO(Teich) 4.4 l/min CI(Teich) 2.6 l/min/m\S\2 SV(Teich) 60.0 ml SI(Teich) 35.4 ml/m\S\2 CO(cubed) 5.0 l/min CI(cubed) 3.0 l/min/m\S\2 SV(cubed) 68.1 ml SI(cubed) 40.3 ml/m\S\2 Ao root diam 3.0 cm Ao root area 7.1 cm\S\2 ACS 1.5 cm LA dimension 2.7 cm asc Aorta Diam 2.5 cm LA/Ao 0.91 LVOT diam 1.9 cm LVOT area 2.8 cm\S\2 LVAd ap4 22.7 cm\S\2 LVLd ap4 7.0 cm EDV(MOD-sp4) 60.0 ml LVAs ap4 12.0 cm\S\2 LVLs ap4 5.6 cm ESV(MOD-sp4) 20.8 ml EF(MOD-sp4) 65.3 % LVAd ap2 22.3 cm\S\2 LVLd ap2 7.4 cm EDV(MOD-sp2) 54.4 ml LVAs ap2 12.2 cm\S\2 LVLs ap2 5.8 cm ESV(MOD-sp2) 21.2 ml EF(MOD-sp2) 61.0 % CO(MOD-sp4) 2.9 l/min CI(MOD-sp4) 1.7 l/min/m\S\2 SV(MOD-sp4) 39.2 ml SI(MOD-sp4) 23.2 ml/m\S\2 CO(MOD-sp2) 2.5 l/min CI(MOD-sp2) 1.5 l/min/m\S\2 SV(MOD-sp2) 33.2 ml SI(MOD-sp2) 19.6 ml/m\S\2 Doppler Measurements and Calculations MV E max rajeev 83.4 cm/sec MV A max rajeev 93.6 cm/sec MV E/A 0.89 MV dec time 0.18 sec Ao V2 max 142.5 cm/sec Ao max PG 8.1 mmHg Ao max PG (full) 3.7 mmHg NAFISA(V,A) 2.0 cm\S\2 NAFISA(V,D) 2.0 cm\S\2 LV V1 max PG 4.4 mmHg LV V1 max 104.8 cm/sec PA V2 max 86.9 cm/sec PA max PG 3.0 mmHg PA acc slope 299.8 cm/sec\S\2 PA acc time 0.18 sec PI max rajeev 150.7 cm/sec PI max PG 9.1 mmHg PI dec slope 273.6 cm/sec\S\2 PI P1/2t 161.3 msec TR max rajeev 220.7 cm/sec PA pr(Accel) -1.81 mmHg
--- NOTE | 2016-06-29 10:57 | Progress Note ---
Internal Med Progress Note Date of Service: Jun 29, 2016. Provider Documentation: SUBJECTIVE: The patient was seen and examined No more episodes of Amnesia Remains stable without any symptoms OBJECTIVE: Vital Signs-as noted below Exam: General-No distress at rest Eyes-normal ENT-normal Neck-supple Lungs-Clear to ausucltate bilaterally Heart-Regular,no murmur appreciated Abdomen-Benign,no masses,bowel sound present Extremities-No edema [id number] focal neuro deficit Lab data as noted below. ASSESSMENT & PLAN: Transient Global Amnesia/Metabolic Encephalopathy Secondary to Hypertensive Urgency Doubt any TIA,Stroke or Seizure activity No more amnesia and no neurological symptoms Neurology consulted-appreciate Input Negative CT of the head and awaiting other neuro work up No more episode of Amnesia MRI /MRA as an OP Will have follow up with Neurology Hypertensive urgency -labetalol given in ER twice. -Continue Home medications -BP seems to be controlled -ECHO:: * The atrial septum is aneurysmal. * The interatrial septum is intact with no evidence for an atrial septal defect. * Injection of contrast documented no interatrial shunt. * The left atrial size is normal. * Right atrial size is normal. * Left ventricular systolic function is normal. * Ejection Fraction = 60-65%. * The right ventricular systolic function is normal. * No significant valvular pathology. Hyponatremia-Doubt causing the current symptoms VF given in ER, Likely secondary to BP medication -HCTZ Will need to change or give Pot Supplement Sodium is improved DVT proph: Lovenox FULL CODE DISPOSITION Likely to go home today Vital Signs: Date Time Temp Pulse Resp B/P Pulse Ox O2 Delivery O2 Flow Rate FiO2 06/29/16 08:00 Room Air 06/29/16 07:19 36.7 72 18 145/89 99 Room Air 06/29/16 04:59 Room Air 06/29/16 04:40 37.1 77 18 124/73 98 Room Air 06/29/16 00:08 Room Air 06/28/16 23:49 37.0 71 18 129/84 100 Room Air 06/28/16 19:25 Room Air 06/28/16 15:25 Room Air 06/28/16 15:10 36.6 74 20 148/85 98 Room Air 06/28/16 12:00 Room Air 06/28/16 11:40 36.7 74 20 152/81 98 Room Air Lab Results: Results Past 24 Hours Test 06/29/16 05:43 Range/Units White Blood Count 4.18 4.8-10.8 K/uL Red Blood Count 3.89 4.2-5.4 M/uL Hemoglobin 12.4 12.0-16.0 g/dL Hematocrit 36.2 37-47 % Mean Corpuscular Volume 93.1 80-100 fL Mean Corpuscular Hemoglobin 31.9 25-34 pg Mean Corpuscular Hemoglobin Concent 34.3 32-36 g/dl RDW Standard Deviation 39.8 36.4-46.3 fL RDW Coefficient of Variation 11.7 11.5-14.5 % Platelet Count 210 130-400 K/uL Mean Platelet Volume 9.1 7.4-10.4 fL Sodium Level 136 136-145 mmol/L Potassium Level 4.0 3.5-5.1 mmol/L Chloride Level 103 98-107 mmol/L Carbon Dioxide Level 24 21-32 mmol/L Anion Gap 9.0 3-11 mmol/L Blood Urea Nitrogen 9 7-18 mg/dl Creatinine 0.67 0.60-1.20 mg/dl Est Creatinine Clear Calc Drug Dose 77.8 ml/min Estimated GFR () 106.9 Estimated GFR (Non- 92.2 BUN/Creatinine Ratio 13.4 10-20 Random Glucose 86 70-99 mg/dl Calcium Level 8.7 8.5-10.1 mg/dl
[2016-06-29 11:30] VITALS: BP 173/89; PULSE 74; TEMP 36.5; O2SAT 98
--- NOTE | 2016-06-29 11:54 | NEUROLOGY CONSULTATION ---
DATE OF CONSULTATION: 06/29/2016 HISTORY OF PRESENT ILLNESS: I am seeing Mrs. Saab in followup with an episode that appeared to be transient global amnesia. She was unable to have MRI yesterday because of severe claustrophobia and she did not want to take any presedation. The patient's carotid ultrasound shows some elevated systolic velocities in the right internal carotid without apparent stenosis. I have reviewed the images and agree. I see no significant stenosis. Her EEG has been performed, results are not on chart. Echocardiography did not reveal a cardiac source of embolism nor a PFO. The atrial septum is aneurysmal and the available telemetric strips include sinus rhythm. She is awake and alert. Her speech and language are normal. PHYSICAL EXAMINATION: VITAL SIGNS: 36.7, 72, 18, 145/89 and 99%. IMPRESSION: Probable transient global amnesia provided EEG normal. Recommend discharge today. I would recommend an MRI of the brain with and without contrast seizure protocol as an outpatient in an open unit. I would recommend a followup carotid ultrasound to be performed in 6 months. I would recommend antiplatelet therapy with aspirin 81 mg. The patient should have a fasting lipid profile as an outpatient. I would recommend that she discontinue her estrogen supplementation because of risk of thrombosis. The patient should see myself or Nelly Rubin back in the office in 2-3 weeks. JOANIE
[2016-06-29] MEDS ORDERED: LOSARTAN POTASSIUM 25 MG TAB PO ONE (12:15)
[2016-06-29] MEDS ORDERED: LOSA50TA6 PO (12:36)
[2016-06-29] MEDS ORDERED: ASPEC81 PO (12:36)
--- NOTE | 2016-06-29 12:42 | Discharge Instructions ---
Discharge Instructions Admission Reason for Admission: Encephalopathy Acute Discharge Discharge Diagnosis / Problem: Transient Global Amnesia,Hypertensive Urgency Discharge Goals Goal(s): Prevent Disease Progression Activity Recommendations Activity Limitations: resume your previous activity . Instructions / Follow-Up Instructions / Follow-Up Please make an appointment with your PCP in [address] Childress in 2-3 weeks Current Hospital Diet Patient's current hospital diet: AHA Diet (Heart Healthy) Discharge Diet Recommended Diet: AHA Diet (Heart Healthy) Pending Studies Studies pending at discharge: yes List of pending studies: MRI of the Brain with and without contrast Seizure Protocol as an OPEN MRI.Fasting Lipid profile. Carotid US in 6 months Medical Emergencies . Who to Call and When: Medical Emergencies: If at any time you feel your situation is an emergency, please call 911 immediately. . Non-Emergent Contact Non-Emergency issues call your: Primary Care Provider . Past History Medical & Surgical History: (1) Transient global amnesia (2) Hypertension . "Provider Documentation" section prepared by Joe Hood. VTE Core Measure Inpt VTE Proph given/why not?: Enoxaparin (Lovenox)SQ
[2016-06-29 12:54] VITALS: BP 173/89; PULSE 74; TEMP 36.5; O2SAT 98
--- NOTE | 2016-06-29 18:25 | Discharge Summary ---
Discharge Summary Admission Date: Jun 27, 2016 at 17:01 Discharge Date: Jun 29, 2016 Discharge Disposition: Home Principal Diagnosis: Transient Global Amnesia,Hypertensive Urgency Secondary Diagnoses/Problems: Please see H&P Consultations: Neurology Medication Reconciliation New Medications: Aspirin (Aspirin EC Low Dose) 81 Mg Ectab 81 MG PO DAILY, #30 Losartan Potassium (Cozaar) 50 Mg Tab 1 TAB PO DAILY for 30 Days, #30 TAB 0 Refills Continued Medications: Biotin (Biotin) 5 Mg Tab 1 TABLET PO DAILY Gelatin (Bulk) (Gelatin) 1 Pow Pow 650 MG PO DAILY Glucosamine Sulfate (Glucosamine) 500 Mg Cap 2000 MG PO DAILY Multiple Vitamin (Multivitamin) 1 Tab Tab 1 TAB PO DAILY, TAB Ocuvite Preservision (Ocuvite Preservision) 1 Tab Tab 1 TAB PO DAILY, TAB Ellinger-3 Fatty Acids (Fish Oil) 1,000 Mg Cap 1000 MG PO BID Discontinued Medications: Estrogens, Conjugated (Premarin) 0.625 Mg Tab 0.625 MG PO QM-F, TAB Olmesartan/Hctz (Benicar Hct 20/12.5) Tab 1 TAB PO DAILY, TAB Admission Information HPI (per Admitting provider): 65 yoF with h/o HTN presents via her to the ER for acute onset of confusion at home. The patient and her left their house today around 0900 to help with a mobile application architect at [employer]. They participated in making hoagies and then left separately-the patient drove herself home. ther stopped on an errand and returned home around 1300 to find his standing in the foyer of their home confused and stating that she didn't know where she was and didn't remember the events of the day. He noted that someone had shoveled the snow off the sidewalk and assumes that was her. Her states she has has a "head cold" over the past few days and has been taking an unknown OTC medication. Today she tells me she has chronic post-nasal drip, but denies cough, fevers, chills, sore throat. She does have a headache with pressure in her sinuses, which is not TTP on exam. She denies visual changes, and states that there was no facial dropp, speech issues, speaking issues, or issues with ambulation with his at home today. She is drinking water without issue and denies issues with swallowing. The patient also denies any symptoms of UTI including no dysuria, urinary urgency or frequency recently. She has no chest pain or SOB and denies pain anywhere except some pressure in her sinuses. She cannot remember if she took her BP medication today. denies any recent vomiting or diarrhea at home. Upon arrival to the ER, the patient's BP was 223 systolic and she was given labetalol. During my exam she was alert and oriented to place and time, but then towards the end of the exam she couldn't remember what we had just talked about and kept asking over and over whether or not she had a stroke and if she was going to be admitted to the hospital. Her BP was back up to 220s systolic at this point again. Labetalol was ordered. She has no personal h/o stroke or heart disease and has never had anything like this before. Past Medical/Surgical History Medical Problems: (1) Hypertension Status: Chronic Surgical Problems: (1) H/O Spinal surgery Status: Resolved Family History Father with stroke in his 70s. Mother is healthy Social History Smoking Status: Former Smoker (10 oack year history) Smokeless Tobacco Use: No Alcohol Use: occasionally Drug Use: none Marital Status: Housing status: lives with significant other Occupational Status: retired (surgical first assistant) Immunizations History of Influenza Vaccine: Yes Influenza Vaccine Date: Dec 18, 2015 History of Tetanus Vaccine?: Yes Tetanus Immunization Date: September 28, 2015 History of Pneumococcal: Yes Pneumococcal Date: September 28, 2015 History of Hepatitis B Vaccine: Unknown Multi-Drug Resistant Organisms History of MDRO: No Allergies Coded Allergies: Sulfa Antibiotics (Verified Allergy, Intermediate, Itch/Swelling, 06/27/16) Home Medications Scheduled Biotin (Biotin), 1 TABLET PO DAILY Estrogens, Conjugated (Premarin), 0.625 MG PO QM-F Gelatin (Bulk) (Gelatin), 650 MG PO DAILY Glucosamine Sulfate (Glucosamine), 2,000 MG PO DAILY Multiple Vitamin (Multivitamin), 1 TAB PO DAILY Ocuvite Preservision (Ocuvite Preservision), 1 TAB PO DAILY Olmesartan/Hctz (Benicar Hct 20/12.5), 1 TAB PO DAILY Ellinger-3 Fatty Acids (Fish Oil), 1,000 MG PO BID Review of Systems Constitutional: No chills, No fever, No weakness Eyes: No diplopia, No worsening of vision ENT: + nasal symptoms (sinus pressure and post-nasal drip), No hearing loss, No sore throat Respiratory: + cough, No shortness of breath Cardiovascular: No chest pain, No edema Abdomen: No GI bleeding, No constipation, No diarrhea, No nausea, No pain, No vomiting Musculoskeletal: No problem reported Genitourinary - Female: No dysuria, No hematuria, No urinary frequency, No urinary urgency Neurologic: + memory loss, No balance problems, No numbness/tingling, No paralysis, No vertigo, No weakness Psychiatric: + anxiety, + depression symptoms, No problem reported Hematologic / Lymphatic: No abnormal bleeding/bruising, No night sweats Integumentary: No new/changing skin lesions, No rash Physical Ex - H&P Physical Exam Vital Signs Date Time Temp Pulse Resp B/P Pulse Ox O2 Delivery O2 Flow Rate FiO2 06/27/16 16:13 76 16 166/104 100 Room Air 06/27/16 15:50 79 18 155/92 100 Room Air 06/27/16 15:10 74 18 168/91 99 Room Air 06/27/16 14:34 100 Room Air 06/27/16 13:56 36.4 76 20 206/109 100 Room Air GEN: WNWD, in no acute distress, alert and appropriate but with short term memory loss that is apparent. HEENT: NC/AT, PERRL, normal sclerae, EOMI, sinuses not tender to palpation, fundoscopic exam was normal bilaterally CARDIO: reg rate, S1/2 heard without m/g/r LUNGS: CTA bilaterally, no crackles, rales or wheezes, good diaphragmatic excursion ABD: soft, non-tender, non-distended, no rebound or guarding EXTREMITY: RP and DP palpable 2+ bilat, no LE swelling or edema, extremities are warm and well-perfused NEURO: CN 2-12 intact, sensation intact throughout, MELINDA-intact, Nhfjnm-ol-ying intact, (reflexes) knee 2+ bilat. Mental status-she is alert and oriented to person, place and date but has some short term memory loss and cannot remember events from this morning. She cannot remember how she got here. 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 She continues to ask me things that she and I just discussed, however. It appears she cannot hold onto any new information. MUSC: 5/5 strength throughout, no focal deficits SKIN: warm and dry Diagnostics - H&P Diagnostics Laboratory Results Results Past 24 Hours Test 06/27/16 14:13 06/27/16 14:20 06/27/16 14:22 Range/Units Bedside Prothrombin Time INR 0.9 0.9-1.1 Bedside Glucose 120 70-90 mg/dl White Blood Count 5.54 4.8-10.8 K/uL Red Blood Count 4.46 4.2-5.4 M/uL Hemoglobin 14.5 12.0-16.0 g/dL Hematocrit 40.3 37-47 % Mean Corpuscular Volume 90.4 80-100 fL Mean Corpuscular Hemoglobin 32.5 25-34 pg Mean Corpuscular Hemoglobin Concent 36.0 32-36 g/dl Platelet Count 253 130-400 K/uL Mean Platelet Volume 9.2 7.4-10.4 fL Neutrophils (%) (Auto) 67.4 % Lymphocytes (%) (Auto) 20.8 % Monocytes (%) (Auto) 7.0 % Eosinophils (%) (Auto) 3.4 % Basophils (%) (Auto) 0.7 % Neutrophils # (Auto) 3.73 1.4-6.5 K/uL Lymphocytes # (Auto) 1.15 1.2-3.4 K/uL Monocytes # (Auto) 0.39 0.11-0.59 K/uL Eosinophils # (Auto) 0.19 0-0.5 K/uL Basophils # (Auto) 0.04 0-0.2 K/uL RDW Standard Deviation 37.7 36.4-46.3 fL RDW Coefficient of Variation 11.4 11.5-14.5 % Immature Granulocyte % (Auto) 0.7 % Immature Granulocyte # (Auto) 0.04 0.00-0.02 K/uL Urine Color YELLOW Urine Appearance CLOUDY CLEAR Urine pH 6.0 4.5-7.5 Urine Specific Nikolai 1.018 1.000-1.030 Urine Protein NEG NEG Urine Glucose (UA) NEG NEG Urine Ketones 1+ NEG Urine Occult Blood NEG NEG Urine Nitrite NEG NEG Urine Bilirubin NEG NEG Urine Urobilinogen NEG NEG Urine Leukocyte Esterase TRACE NEG Urine WBC (Auto) 1-5 0-5 /hpf Urine RBC (Auto) 0-4 0-4 /hpf Urine Hyaline Casts (Auto) 10-30 0-5 /lpf Urine Epithelial Cells (Auto) >30 0-5 /lpf Urine Bacteria (Auto) 2+ NEG Sodium Level 129 136-145 mmol/L Potassium Level 3.6 3.5-5.1 mmol/L Chloride Level 93 98-107 mmol/L Carbon Dioxide Level 22 21-32 mmol/L Anion Gap 14.0 17.0 16-25 mmol/L Blood Urea Nitrogen 14 7-18 mg/dl Creatinine 0.97 0.60-1.20 mg/dl Est Creatinine Clear Calc Drug Dose 52.4 ml/min Estimated GFR () 71.0 Estimated GFR (Non- 61.3 BUN/Creatinine Ratio 14.6 10-20 Random Glucose 104 70-99 mg/dl Calcium Level 10.2 8.5-10.1 mg/dl Total Creatine Kinase 71 26-192 U/L Creatine Kinase MB 1.3 0.5-3.6 ng/ml Creatine Kinase MB Ratio 1.8 0-3.0 Troponin I < 0.015 0-0.045 ng/ml Thyroid Stimulating Hormone (TSH) 2.760 0.300-4.500 uIu/ml Free Thyroxine 1.35 0.80-1.60 ng/dl Urine Opiates Screen NEG NEG Urine Methadone, Qualitative NEG NEG Urine Barbiturates NEG NEG Urine Phencyclidine (PCP) Level NEG NEG Ur Amphetamine/Methamphetamine NEG NEG MDMA (Ecstasy) Screen NEG NEG Urine Benzodiazepines Screen NEG NEG Urine Cocaine Metabolite NEG NEG Urine Marijuana (THC) NEG NEG Bedside Hemoglobin 15.0 12.0-16.0 g/dl Bedside Hematocrit 44 37-47 % Bedside Sodium 127 135-144 mEq/L Bedside Potassium 5.0 3.3-5.0 mEq/L Bedside Chloride 94 101-112 mEq/L Bedside Total CO2 22 24-31 mEq/l Bedside Blood Urea Nitrogen 20 7-18 mg/dl Bedside Creatinine 0.8 0.6-1.3 mg/dl Bedside Glucose (other) 113 70-99 mg/dl Bedside Ionized Calcium (Derick) 1.09 1.12-1.32 mmol/l Diagnostic Radiology CHEST ONE VIEW PORTABLE FINDINGS: The cardiac and mediastinal contours are normal. There is no evidence of focal pulmonary consolidation. There is no evidence of failure. No pleural effusions are visualized.[ IMPRESSION: No active disease in the chest. -------- CT HEAD WITHOUT CONTRAST (CT) No intra or extra-axial mass lesions are visualized. There is no CT evidence of acute cortical infarction. There is no evidence of midline shift. There is no acute hemorrhage. No calvarial fractures are visualized. There are minimal white matter hypodensities likely on a small vessel basis. There is no evidence of pathologic ventricular dilatation. There is mucosal thickening/fluid within the right maxillary sinus. IMPRESSION: No acute intracranial findings EKG SR 69, no ST changes. Impression - H&P Impression Assessment and Plan 65 yo F with acute onset memory loss 1. Memory loss-acute onset, no seizure history with RF for stoke to include age and HTN. Stroke alert was called in ED and pt was deemed not a candidate for TPA. Head CT was negative. Pt has issues with small spaces and metal in her back s/p spine surgery. Will consult Neurology and defer MRI need to them. Will start aspirin. Will admit to telemetry with efforts to control her BP. Labetalol given again in ER prior to arrival on floor. DDX includes but is not limited to stroke, hyponatremia, uncontrolled hypertension, adverse reaction to the cold medication taken over the past few days, ACS. Doubt encephalitis without fever or meningeal signs/symptoms. EKG reveals no ischemia, pt denies chest pain or trouble breathing and cardiac enzymes are negative, so ACS less likely. Recent cold symptoms so will screen for flu. Utox is negative and patient does not appear to have an active infection in her lungs or urine. She has a nonfocal exam but becomes intermittently confused with short-term memory loss. Will work to correct lytes and BP now and monitor closely. 2. Hypertensive urgency-labetalol given in ER twice. Will give patient her oral home med and cont to monitor. Will order hydralazine PRN to keep BP<180. Reassessment of BP later in the night was in 140s systolic. 3. Hyponatremia-IVF given in ER, but patient has a dry mouth and dehydration on labwork. Will cont IVF and recheck Na tonight. Ordered urine sodium and creatinine as well as plasma osm, but this appears to be hypovolemic hypotonic hyponatremia. Repeat Na on IVF was 130 up from 127. Trend PRP q4h overnight. DVT proph: Lovenox FULL CODE Dispo-monitor on telemetry, pending neuro assessment and mental status improvement. Maritza Guajardo, DO [facility] Telemetry Resuscitation Status FULL RESUSCITATION VTE Prophylaxis VTE Risk Assessment Done? Y/N: Yes Risk Level: Moderate Given or contraindicated: Enoxaparin (Lovenox)SQ Physical Exam (per Admitting): GEN: WNWD, in no acute distress, alert and appropriate but with short term memory loss that is apparent. HEENT: NC/AT, PERRL, normal sclerae, EOMI, sinuses not tender to palpation, fundoscopic exam was normal bilaterally CARDIO: reg rate, S1/2 heard without m/g/r LUNGS: CTA bilaterally, no crackles, rales or wheezes, good diaphragmatic excursion ABD: soft, non-tender, non-distended, no rebound or guarding EXTREMITY: RP and DP palpable 2+ bilat, no LE swelling or edema, extremities are warm and well-perfused NEURO: CN 2-12 intact, sensation intact throughout, MELINDA-intact, Iyqqkr-xm-oedl intact, (reflexes) knee 2+ bilat. Mental status-she is alert and oriented to person, place and date but has some short term memory loss and cannot remember events from this morning. She cannot remember how she got here. 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 She continues to ask me things that she and I just discussed, however. It appears she cannot hold onto any new information. MUSC: 5/5 strength throughout, no focal deficits SKIN: warm and dry Hospital Course Transient Global Amnesia/Metabolic Encephalopathy Secondary to Hypertensive Urgency Doubt any TIA,Stroke or Seizure activity No more amnesia and no neurological symptoms Neurology consulted-appreciate Input Negative CT of the head and awaiting other neuro work up No more episode of Amnesia MRI /MRA as an OP Will have follow up with Neurology Hypertensive urgency -labetalol given in ER twice. -Continue Home medications -BP seems to be controlled -ECHO:: * The atrial septum is aneurysmal. * The interatrial septum is intact with no evidence for an atrial septal defect. * Injection of contrast documented no interatrial shunt. * The left atrial size is normal. * Right atrial size is normal. * Left ventricular systolic function is normal. * Ejection Fraction = 60-65%. * The right ventricular systolic function is normal. * No significant valvular pathology. Hyponatremia-Doubt causing the current symptoms VF given in ER, Likely secondary to BP medication -HCTZ Will need to change or give Pot Supplement Sodium is improved DVT proph: Lovenox FULL CODE DISPOSITION Likely to go home today Total time spent on discharge = 35 minutes This includes examination of the patient, discharge planning, medication reconciliation, and communication with other providers. Discharge Instructions Admission Reason for Admission: Encephalopathy Acute Discharge Discharge Diagnosis / Problem: Transient Global Amnesia,Hypertensive Urgency Discharge Goals Goal(s): Prevent Disease Progression Activity Recommendations Activity Limitations: resume your previous activity . Instructions / Follow-Up Instructions / Follow-Up Please make an appointment with your PCP in [address] Childress in 2-3 weeks Current Hospital Diet Patient's current hospital diet: AHA Diet (Heart Healthy) Discharge Diet Recommended Diet: AHA Diet (Heart Healthy) Pending Studies Studies pending at discharge: yes List of pending studies: MRI of the Brain with and without contrast Seizure Protocol as an OPEN MRI.Fasting Lipid profile. Carotid US in 6 months Medical Emergencies . Who to Call and When: Medical Emergencies: If at any time you feel your situation is an emergency, please call 911 immediately. . Non-Emergent Contact Non-Emergency issues call your: Primary Care Provider . Past History Medical & Surgical History: (1) Transient global amnesia (2) Hypertension . "Provider Documentation" section prepared by Joe Hood. VTE Core Measure Inpt VTE Proph given/why not?: Enoxaparin (Lovenox)SQ <Electronically signed by Joe Hood M.D.> Additional Copies To Kenneth Brown D.O.
[2016-06-30] MEDS ORDERED: LOSARTAN POTASSIUM 50 MG TAB PO SCH (09:00)
--- NOTE | 2016-07-02 13:27 | ELECTROENCEPHALOGRAPH REPORT ---
REQUESTING: Dr. Childress. CLINICAL DIAGNOSES: Acute confusion and possible transient ischemic attack. EEG DIAGNOSIS: Essentially normal during wakefulness and brief duration of drowsiness. DESCRIPTION OF TRACING: This EEG was done as a bedside recording with simultaneous video analysis of the patient movement and behavior. Photic stimulation was performed. Hyperventilation was not. Episodic drowsiness was recorded, but fully sustained periods of sleeps are not seen. Under these conditions, the awake EEG is essentially normal with a background rhythm in the alpha range of up to 10 Hz of maximum frequency and 30 microvolts of maximum amplitude. This is maximum posterior head regions bilaterally symmetrical. Polymorphic mid frequency theta activity is seen over all head regions without clear focal or regional predominance. Anterior head region maximum bilaterally symmetrical low voltage fast activity beta range is present. Drowsiness is seen during which the background alpha rhythm shifts into the theta range and there is buildup of higher amplitude mid to lower frequency theta activity occurring in a generalized fashion. No abnormal activations occurred during these intervals. Photic stimulation provokes a modest driving response without a photomyogenic or photoparoxysmal component. At no time during the waking tracing, there is evidence for potentially epileptogenic activity in the form of polyspike or spike wave bursts, focal sharp waves or focal spikes. INTERPRETATION: This EEG is essentially normal during wakefulness and brief duration of drowsiness without evidence for focal or generalized encephalopathy and without evidence for potentially epileptogenic activity.
== END 2016-06-29 13:26 | disposition home or self-care (01) | DRG 304 ==
LOC: ENRESERVTM → ENRESERVDT → C.EDB 13:53 → C.2T 17:01 → EDBEDREQ 17:03
PROVIDERS: ADMIT Hospitalist; ATTEND Internal Medicine
DX: I16.0 Hypertensive urgency (principal); G93.41 Metabolic encephalopathy; E87.1 Hypo-osmolality and hyponatremia; G45.4 Transient global amnesia; Z88.2 Allergy status to sulfonamides; R41.3 Other amnesia; I10 Essential (primary) hypertension; Z87.891 Personal history of nicotine dependence; E86.0 Dehydration

== ENCOUNTER → 2016-08-15 | Outpatient (CLI) | payer OTHER ==
[~2016-08-15] MED LIST changes: +ASPEC81 PO; -BENICAR PO; -DICY10CA55 PO; -FISHOIL PO; +LOSA50TA6 PO; -MAGNESIUM PO; -MEDR2.5T PO; +OMEG10002 PO; -PRM/625 PO; -VALA500T60 PO; -[UNRECOGNIZED DRUG - MIXTURE] PO
== END | disposition home or self-care (01) ==
LOC: C.LABSPEC 16:26
PROVIDERS: ATTEND Obstetrics & Gynecology
DX: N76.0 Acute vaginitis (principal)

== ENCOUNTER → 2016-08-15 | Outpatient (CLI) | payer OTHER | END | disposition home or self-care (01) | LOC: C.PAPS 08:13 | PROVIDERS: ATTEND Obstetrics & Gynecology | DX: L29.8 Other pruritus (principal) ==

== ENCOUNTER → 2016-08-15 | Outpatient (CLI) | payer OTHER ==
--- NOTE | 2016-08-15 15:41 | MAMMOGRAPHY REPORT ---
BILATERAL DIGITAL SCREENING MAMMOGRAM WITH CAD: 08/15/2016 CLINICAL HISTORY: Routine screening. Patient has no complaints. TECHNIQUE: Current study was also evaluated with a Computer Aided Detection (CAD) system. Bilatera l CC and MLO views were obtained. COMPARISON: Comparison is made to exams dated: 07/13/2015 mammogram, 06/03/2014 mammogram, 04/22/2013 mammogram, 03/26/2012 mammogram, and 03/24/2012 mammogram - [facility]. BREAST COMPOSITION: There are scattered areas of fibroglandular density in both breasts. FINDINGS: No suspicious masses, calcifications, or areas of architectural distortion are noted in e ither breast. There has been no significant interval change compared to prior exams. Asymmetry seen within the left superior breast on the MLO view is stable dating back to at least the 2011 exam. A symmetry in the right lateral breast on the CC view is also stable dating back to at least the 2011 exam. IMPRESSION: ACR BI-RADS CATEGORY 2: BENIGN There is no mammographic evidence of malignancy. A 1 year screening mammogram is recommended. The p atient will receive written notification of the results. Approximately 10% of breast cancers are not detected with mammography. A negative mammographic repor t should not delay biopsy if a clinically suggestive mass is present. Kailey Baker M.D. /:08/15/2016 14:47:36 Wireless Technician: Christine LAZARO(Ramez)(Blanca), [facility] letter sent: Normal 1/2 BI-RADS Code: ACR BI-RADS Category 2: Benign
== END | disposition home or self-care (01) ==
LOC: C.MAMM 10:25
PROVIDERS: ATTEND Obstetrics & Gynecology
DX: Z12.31 Encounter for screening mammogram for malignant neoplasm of breast (principal); N76.0 Acute vaginitis; L29.8 Other pruritus

== ENCOUNTER → 2017-09-18 | Outpatient (CLI) | payer OTHER ==
[~2017-09-18] MED LIST changes: -ASPEC81 PO; +ASPI-320 PO
--- NOTE | 2017-09-18 12:40 | MAMMOGRAPHY REPORT ---
BILATERAL DIGITAL SCREENING MAMMOGRAM TOMOSYNTHESIS WITH CAD: 09/18/2017 CLINICAL HISTORY: Routine screening. Patient has no complaints. TECHNIQUE: Breast tomosynthesis in addition to standard 2D mammography was performed. Current study was also evaluated with a Computer Aided Detection (CAD) system. COMPARISON: Comparison is made to exams dated: 08/15/2016 mammogram, 07/13/2015 mammogram, 06/03/2014 m ammogram, 04/22/2013 mammogram, 09/30/2012 mammogram, and 03/26/2012 ultrasound - [facility]. BREAST COMPOSITION: There are scattered areas of fibroglandular density in both breasts. FINDINGS: No suspicious masses, calcifications, or areas of architectural distortion are noted in ei ther breast. There has been no significant interval change compared to prior exams. IMPRESSION: ACR BI-RADS CATEGORY 1: NEGATIVE There is no mammographic evidence of malignancy. A 1 year screening mammogram is recommended. The pa tient will receive written notification of the results. Approximately 10% of breast cancers are not detected with mammography. A negative mammographic report should not delay biopsy if a clinically suggestive mass is present. Kailey Baker M.D. /:09/18/2017 12:24:57 Engineering Specialist Technician: Livia Jacobson [facility] letter sent: Normal 1/2 BI-RADS Code: ACR BI-RADS Category 1: Negative
== END | disposition home or self-care (01) ==
LOC: C.MAMM 10:37
PROVIDERS: ATTEND Obstetrics & Gynecology
DX: Z12.31 Encounter for screening mammogram for malignant neoplasm of breast (principal)